=== PATIENT | male | born 1950 | race Caucasian/White ===

== ENCOUNTER 2020-10-31 02:43 | Emergency (ER) | payer MEDICARE, OTHER ==
[~2020-10-31 02:43] MED LIST: AZITHROMYCIN250 MG PO; PREDNISONE 20MG20 MG PO; PROAIR HFA8.5 GM INH; TESSALON PERLE100 M1 PO
[2020-10-31 03:40] LABS: BASOPHIL 0.6 % (0-2); EOSINOPHIL 1.7 % (0-7); HGB 12.8 g/dl (13.2-18.0); LYMPHOCYTE 16.2 % (15-48); MCH 28.8 pg (25.0-31.0); MCHC 33.7 g/dL (32.0-36.0); MCV 85.4 fL (78.0-100.0); MONOCYTE 10.8 % (0-12); MPV 10.7 fL (6.0-9.5); NEUTROPHIL 70.3 % (41-80); NRBC 0; PLT 221 K/uL (150-400); RBC 4.45 M/uL (4.70-6.00); RDW 12.8 % (11.5-14.0); WBC 8.2 K/uL (4.0-10.5)
[2020-10-31 04:26] LABS: ALBUMIN 3.2 g/dL (3.4-5.0); BILIRUBIN - TOTAL 0.2 mg/dL (0.2-1.0); CREATININE 1.24 mg/dL (0.67-1.17); GLOBULIN (CALCULATION) 3.6 g/dL; POTASSIUM 3.7 mmol/L (3.5-5.1); PRO-BNP 817 pg/mL (<125); TOTAL PROTEIN 6.8 g/dL (6.4-8.2)
== END 2020-10-31 06:25 | disposition other institution (70) ==
LOC: FER 02:43
PROVIDERS: Emergency Medicine
DX: T82.199A Other mechanical complication of unspecified cardiac device, initial encounter (principal); S91.331A Puncture wound without foreign body, right foot, initial encounter; L03.115 Cellulitis of right lower limb; E11.9 Type 2 diabetes mellitus without complications; I50.9 Heart failure, unspecified; Z23 Encounter for immunization; W45.0XXA Nail entering through skin, initial encounter; Y92.009 Unspecified place in unspecified non-institutional (private) residence as the place of occurrence of the external cause; Y83.8 Other surgical procedures as the cause of abnormal reaction of the patient, or of later complication, without mention of misadventure at the time of the procedure
CPT/HCPCS: 36415; 71045; 80053; 82550; 83605; 83880; 84484; 85025; 87040; 90471; 90714; 93005; J2543; J7030

== ENCOUNTER 2022-01-05 16:44 | Emergency (ER) | payer MEDICARE, OTHER ==
[2022-01-05 18:20] LABS: BASOPHIL 0.5 % (0-2); EOSINOPHIL 2.2 % (0-7); LYMPHOCYTE 10.4 % (15-48); MCH 28.4 pg (25.0-31.0); MCHC 33.3 g/dL (32.0-36.0); MCV 85.3 fL (78.0-100.0); MONOCYTE 8.8 % (0-12); MPV 10.7 fL (6.0-9.5); NEUTROPHIL 77.7 % (41-80); NRBC 0; PLT 157 K/uL (150-400); RBC 4.57 M/uL (4.70-6.00); RDW 12.9 % (11.5-14.0); WBC 7.8 K/uL (4.0-10.5)
[2022-01-05 18:31] LABS: BUN/CREAT RATIO (CALC) 12.3 RATIO; CREATININE 1.22 mg/dL (0.67-1.17)
[2022-01-05 18:37] LABS: POTASSIUM 3.2 mmol/L (3.5-5.1)
[2022-01-05] MEDS ORDERED: NORCO 5-325 TA1 EACH PO (18:55)
[2022-01-05] MEDS ORDERED: CEPHALEXIN500 M1 PO (18:55)
== END 2022-01-05 19:55 | disposition home or self-care (01) ==
LOC: FER 16:44
PROVIDERS: Internal Medicine
DX: L03.115 Cellulitis of right lower limb (principal); E87.6 Hypokalemia; I10 Essential (primary) hypertension; E11.65 Type 2 diabetes mellitus with hyperglycemia; Z28.310 Unvaccinated for COVID-19
CPT/HCPCS: 36415; 80048; 85025; 96372; J0696